=== PATIENT | male | born 1955 | race American Indian/Alaskan Native ===

== ENCOUNTER 2018-09-23 07:45 | Outpatient (CLI) | payer MEDICAID ==
--- NOTE | 2018-09-23 11:39 | Cat Scan Report ---
CT ABDOMEN AND PELVIS WITHOUT CONTRAST, 09/23/2018 INDICATION: Prostate cancer. TECHNICAL: Multiple axial CT images of the abdomen and pelvis were acquired without intravenous contr ast. Sagittal and coronal reformats were obtained. Oral contrast was given. COMPARISON: None. FINDINGS: Abdomen: Clear lung bases. Normal liver, gallbladder and bile ducts. Normal stomach, pancreas and spl een. Normal adrenal glands. Normal size kidneys with normal nondilated renal collecting systems and u reters. The right kidney measures 9.2 cm in length and the left kidney measures 9.8 cm in length. Non specific bilateral perinephric stranding. No renal mass, calculus or cyst. Normal aorta and inferior vena cava. No retroperitoneal or intraperitoneal lymphadenopathy. The small and large bowel are murali l. Normal appendix. Pelvis: Normal urinary bladder. The prostate is mildly enlarged and measures 5.4 x 4.5 cm. Normal rec maxim and sigmoid colon. A few prominent pelvic veins and no definite pelvic lymphadenopathy other than bilateral prominent inguinal lymph nodes. The largest is on the right, has central fat and measures 2.2 cm. The largest on the left measures 1.5 cm. Evaluation of bony structures demonstrate no suspicious bone lesion. IMPRESSION: 1. Nonspecific bilateral perinephric stranding and otherwise negative abdomen. 2. Mild prostate enlargement. 3. No evidence of metastatic disease. Signer Name: Blane Jenkins MD Signed: 09/23/2018 11:34 AM Workstation Name: [id number]
--- NOTE | 2018-09-23 11:46 | Nuclear Medicine Report ---
CLINICAL DATA: Prostate cancer. TECHNICAL DATA: Following intravenous injection of 27.5 millicuries of 99m technetium MDP, three-hour delayed anterio r and posterior whole body skeletal phase images were obtained. FINDINGS: Several areas of focal uptake in the para midline maxillofacial and mandibular structures. Several fo ci of uptake in the cervical spine and thoracic spine. Relatively diffuse uptake in the sternum which is more pronounced on delayed imaging. Likely benign uptake in the shoulders, knees, ankles and feet . There Is normal renal and bladder activity. IMPRESSION: Abnormal uptake in the face, cervical spine, thoracic spine and sternum. Recommend further evaluation with CT of the face, neck and chest. Signer Name: Blane Jenkins MD Signed: 09/23/2018 11:42 AM Workstation Name: [id number]
== END 2018-09-23 07:46 | disposition home or self-care (01) ==
LOC: NM 07:45
PROVIDERS: ATTEND Urology
DX: N40.0 Benign prostatic hyperplasia without lower urinary tract symptoms (principal); C61 Malignant neoplasm of prostate
CPT/HCPCS: 74176; 78306; A9503

== ENCOUNTER 2020-04-06 11:20 | Day surgery (SDC) | payer MEDICAID ==
[2020-04-06] MEDS ORDERED: METOPROLOL TARTRATE 50 MG TAB PO ONE (12:45)
[2020-04-06] MEDS ORDERED: FAMOTIDINE 20 MG/2 ML INJ IV NR (13:00)
[2020-04-06] MEDS ORDERED: MIDAZOLAM 2 MG/2 ML INJ IV NR (13:00)
[2020-04-06] MEDS ORDERED: SODIUM CHLORIDE 0.9% 1000 ML 1,000 ML IV SCH (13:00)
[2020-04-06] MEDS ORDERED: FAMOTIDINE 20 MG/2 ML INJ IV ONE (13:06)
[2020-04-06 13:21] LABS: Calcium 8.9 mg/dL (8.4-10.2)
[2020-04-06] MEDS ORDERED: propofoL 200 MG/20 ML VIAL IV ONE (14:45)
[2020-04-06] MEDS ORDERED: HYDROmorphone 1 MG/1 ML INJ ONE ×2 (14:45→16:00)
[2020-04-06] MEDS ORDERED: LIDOCAINE MPF (2%) 20 MG/1 ML VIAL 5 ML ONE (14:45)
[2020-04-06] MEDS ORDERED: ONDANSETRON 4 MG/2 ML INJ ONE (15:39)
[2020-04-06] MEDS ORDERED: IOHEXOL 300 MG/ML 50ML IV ONE (15:40)
[2020-04-06] MEDS ORDERED: WATER FOR IRRIG STERILE 1,500 ML BOTTLE IR ONE (15:43)
[2020-04-06] MEDS ORDERED: HYDROmorphone 1 MG/1 ML INJ IV PRN (16:03)
[2020-04-06] MEDS ORDERED: ONDANSETRON 4 MG/2 ML INJ IV PRN (16:03)
--- NOTE | 2020-04-06 16:31 | Post Operative Note ---
Date of procedure: 04/06/20 Pre-op diagnosis: heme abn cytology post xrt Post-op diagnosis: other Findings: cysto dil rpgs bx Procedure: stricture Anesthesia: GETA Surgeon: GISSELL GALINDO Estimated blood loss: none Pathology: list (bladder) Specimen disposition: to lab Condition: stable Disposition: PACU
--- NOTE | 2020-04-06 16:33 | Discharge Summary ---
Short Stay Discharge Plan Activity: other (no straining ) Weight Bearing Status: Full Weight Bearing Diet: low fat, low cholesterol, low salt Special Instructions: other (inc fluids ) Follow up with: DORENE VELIZ MD [Primary Care Provider] - 7 Days GISSELL GALINDO MD [Staff Physician] - 14 Days
--- NOTE | 2020-04-06 16:48 | Fluoroscopy Report ---
INTRAOPERATIVE FLUOROSCOPY INDICATION / CLINICAL INFORMATION: HEMATURIA.. TECHNIQUE: Intraoperative spot images were obtained during the procedure. FINDINGS: Intraoperative fluoroscopy images for retrograde urography. See operative/procedure note by performing physician for full details. Fluoroscopy Time: 35 seconds. Fluoroscopy Images: 1. Signer Name: Yaniv Olivares MD Signed: 04/06/2020 4:43 PM Workstation Name: [id number]
--- NOTE | 2020-04-06 16:53 | Operative Report ---
PREOPERATIVE DIAGNOSIS: Previous prostate cancer radiation, abnormal cytology. POSTOPERATIVE DIAGNOSES: Previous prostate cancer radiation, abnormal cytology. PROCEDURE: Cystoscopy, urethral dilatation, retrograde biopsy. SURGEON: Dr. Chapa. ANESTHESIA: General. FINDINGS: This is a gentleman who has abnormal cytology. He had previous seed implantation for prostate cancer, now presents for cystoscopy. DESCRIPTION OF PROCEDURE: The patient was brought to the operating room and placed on the operating table. Following induction of anesthesia, placed in lithotomy position, prepped and draped in usual sterile fashion. Cystourethroscopy showed the stricture. We were going to do a DVIU, but once we placed a wire, we were able to dilate it without difficulty. There was no bleeding. Retrograde showed a slightly medial deviation of the ureters with good filling, good drainage, no intrinsic filling defects. Random biopsies were obtained. There were no epithelial lesions. The patient tolerated the procedure well. The urethra was wide open. We did not leave a Bunch, brought to recovery in stable condition. JOB# [id number] FOX/HEIDY
--- NOTE | 2020-04-06 17:13 | Post Anesthesia Evaluation ---
- Post Anesthesia Evaluation Patient Participated: Yes Airway Patent: Yes Stable Respiratory Function: Yes Nausea/Vomiting: No Temp > 96.8F: Yes Pain Manageable: Yes Adequeate Hydration: Yes Anesthesia Complications: No Block Receding Appropriately: Not Applicable Patient on Ventilator: No
[2020-04-06 17:36] VITALS: BP 149/77
--- NOTE | 2020-04-07 07:24 | Anesthesia Consultation ---
Anesthesia Consult and Med Hx Date of service: 04/07/20 - Airway Anesthetic Teeth Evaluation: Good (some missing teeth) ROM Head & Neck: Adequate Mental/Hyoid Distance: Adequate Mallampati Class: Class III Intubation Access Assessment: Possibly Difficult - Pre-Operative Health Status ASA Pre-Surgery Classification: ASA3 Proposed Anesthetic Plan: General - Pulmonary Hx Sleep Apnea: Yes (snoring) - Cardiovascular System Hx Hypertension: Yes - Central Nervous System Hx Neuromuscular Disorder: No (gout) Hx Back Pain: Yes - Endocrine Hx Renal Disease: No (BPH) Hx Non-Insulin Dependent Diabetes: Yes (BS 84 @ 8AM) - Other Systems Hx Obesity: Yes
--- NOTE | 2020-04-07 07:25 | Anesthesia Day of Surgery ---
Anesthesia Day of Surgery - Day of Surgery Patient Examined: Yes Patient H&P Reviewed: Yes Patient is NPO: Yes Beta Blockers: Yes (given in the AM)
== END 2020-04-06 17:45 | disposition home or self-care (01) ==
LOC: OR 11:20
PROVIDERS: ATTEND Urology
DX: R89.6 Abnormal cytological findings in specimens from other organs, systems and tissues (principal); R31.9 Hematuria, unspecified; N32.89 Other specified disorders of bladder; I10 Essential (primary) hypertension; G47.30 Sleep apnea, unspecified; E66.9 Obesity, unspecified; E11.9 Type 2 diabetes mellitus without complications; Z85.46 Personal history of malignant neoplasm of prostate; Z79.899 Other long term (current) drug therapy; Z79.84 Long term (current) use of oral hypoglycemic drugs; Z68.38 Body mass index [BMI] 38.0-38.9, adult
CPT/HCPCS: 36415; 52204; 52276; 74420; 80048; 82962; 88305; C1758; J0690; J1170; J2405; J2704; J7030; Q9967